=== PATIENT | female | born 1970 | race Caucasian/White ===

== ENCOUNTER → 2019-04-23 08:55 | Outpatient (BNVA) | payer MEDICARE, SELFPAY | PROVIDERS: Family Provider Nurse Practitioner Family; PCP Nurse Practitioner Family; Visit Provider Anesthesiology | DX: M51.16 Intervertebral disc disorders with radiculopathy, lumbar region (principal); F17.290 Nicotine dependence, other tobacco product, uncomplicated; Z71.6 Tobacco abuse counseling; Z79.891 Long term (current) use of opiate analgesic | CPT/HCPCS: 99214 ==

== ENCOUNTER → 2019-08-13 08:05 | Outpatient (BNVA) | payer MEDICARE, SELFPAY | PROVIDERS: Family Provider Nurse Practitioner Family; PCP Nurse Practitioner Family; Visit Provider Anesthesiology | DX: M51.16 Intervertebral disc disorders with radiculopathy, lumbar region (principal); F17.290 Nicotine dependence, other tobacco product, uncomplicated; Z79.891 Long term (current) use of opiate analgesic | CPT/HCPCS: 99213; 99214 ==

== ENCOUNTER → 2019-10-15 07:54 | Outpatient (BNVA) | payer MEDICARE, SELFPAY | PROVIDERS: Family Provider Nurse Practitioner Family; PCP Nurse Practitioner Family; Visit Provider Anesthesiology | DX: M51.16 Intervertebral disc disorders with radiculopathy, lumbar region (principal); M54.9 Dorsalgia, unspecified; F17.290 Nicotine dependence, other tobacco product, uncomplicated; Z79.891 Long term (current) use of opiate analgesic | CPT/HCPCS: 99213; 99214 ==

== ENCOUNTER → 2019-12-19 08:09 | Outpatient (BNVA) | payer MEDICARE, SELFPAY | PROVIDERS: Family Provider Nurse Practitioner Family; PCP Nurse Practitioner Family; Visit Provider Anesthesiology | DX: M51.16 Intervertebral disc disorders with radiculopathy, lumbar region (principal); M54.9 Dorsalgia, unspecified; Z79.891 Long term (current) use of opiate analgesic; F17.290 Nicotine dependence, other tobacco product, uncomplicated | CPT/HCPCS: 99213; 99214 ==

== ENCOUNTER → 2020-02-11 09:39 | Outpatient (BNVA) | payer MEDICARE, SELFPAY | PROVIDERS: Family Provider Nurse Practitioner Family; PCP Nurse Practitioner Family; Visit Provider Anesthesiology | DX: M51.16 Intervertebral disc disorders with radiculopathy, lumbar region (principal); M54.9 Dorsalgia, unspecified; F17.210 Nicotine dependence, cigarettes, uncomplicated; Z79.891 Long term (current) use of opiate analgesic | CPT/HCPCS: 99213; 99214 ==

== ENCOUNTER → 2020-04-22 09:23 | Outpatient (BNVA) | payer MEDICARE, SELFPAY | PROVIDERS: Family Provider Nurse Practitioner Family; PCP Nurse Practitioner Family; Visit Provider Nurse Practitioner | DX: M51.16 Intervertebral disc disorders with radiculopathy, lumbar region (principal); M54.9 Dorsalgia, unspecified; F17.290 Nicotine dependence, other tobacco product, uncomplicated; Z79.891 Long term (current) use of opiate analgesic | CPT/HCPCS: 99213 ==

== ENCOUNTER → 2020-06-18 07:54 | Outpatient (BNVA) | payer MEDICARE, SELFPAY | PROVIDERS: Family Provider Nurse Practitioner Family; PCP Nurse Practitioner Family; Visit Provider Anesthesiology | DX: M51.16 Intervertebral disc disorders with radiculopathy, lumbar region (principal); M54.9 Dorsalgia, unspecified; M25.551 Pain in right hip; M25.552 Pain in left hip; F17.290 Nicotine dependence, other tobacco product, uncomplicated; Z79.891 Long term (current) use of opiate analgesic | CPT/HCPCS: 99213 ==

== ENCOUNTER → 2020-08-18 08:44 | Outpatient (BNVA) | payer MEDICARE, SELFPAY | PROVIDERS: Family Provider Nurse Practitioner Family; PCP Nurse Practitioner Family; Visit Provider Nurse Practitioner | DX: M51.16 Intervertebral disc disorders with radiculopathy, lumbar region (principal); M54.9 Dorsalgia, unspecified; F17.290 Nicotine dependence, other tobacco product, uncomplicated; Z79.891 Long term (current) use of opiate analgesic | CPT/HCPCS: 99214 ==

== ENCOUNTER → 2020-09-08 08:07 | Outpatient (BNVA) | payer MEDICARE, SELFPAY | PROVIDERS: Family Provider Nurse Practitioner Family; PCP Nurse Practitioner Family; Visit Provider Nurse Practitioner | DX: M51.16 Intervertebral disc disorders with radiculopathy, lumbar region (principal); Z79.1 Long term (current) use of non-steroidal anti-inflammatories (NSAID); Z79.891 Long term (current) use of opiate analgesic | CPT/HCPCS: 99213; 99214 ==

== ENCOUNTER → 2020-11-12 08:47 | Outpatient (BNVA) | payer MEDICARE, SELFPAY | PROVIDERS: Family Provider Nurse Practitioner Family; PCP Nurse Practitioner Family; Visit Provider Anesthesiology | DX: G89.29 Other chronic pain (principal); M51.16 Intervertebral disc disorders with radiculopathy, lumbar region; Z79.891 Long term (current) use of opiate analgesic | CPT/HCPCS: 99213 ==

== ENCOUNTER → 2021-01-12 08:55 | Outpatient (BNVA) | payer MEDICARE, SELFPAY | PROVIDERS: Family Provider Nurse Practitioner Family; PCP Nurse Practitioner Family; Visit Provider Anesthesiology | DX: G89.29 Other chronic pain (principal); M51.16 Intervertebral disc disorders with radiculopathy, lumbar region; F17.290 Nicotine dependence, other tobacco product, uncomplicated; Z79.891 Long term (current) use of opiate analgesic | CPT/HCPCS: 99214 ==

== ENCOUNTER 2021-03-13 17:29 | Inpatient (IN) | payer MEDICARE, SELFPAY ==
[2021-03-13] VITALS (8 sets, daily range): BP systolic 115–129; BP diastolic 77–91; PULSE 67–90; RESP 15–30; TEMP 36.8; O2SAT 79–95; BMI 39.0
--- NOTE | 2021-03-13 17:57 | ECG_ITS ---
[facility] Test Date: 2021-03-13 Pat Name: Megan Villaseñor Department: Room: Gender: Female Unit Technician: : 1970 Requested By: Esau Stokes Order Number: [id number] Reading MD: RENEE MOREL Measurements Intervals [facility] Rate: 78 P: 25 WY: 183 QRS: 26 QRSD: 95 T: 35 QT: 377 QTc: 431 Interpretive Statements SINUS RHYTHM No previous ECG available for comparison Electronically Signed On 03-14-2021 20:54:27 SPINNERET PERSON by RENEE MOREL [email or web address]
--- NOTE | 2021-03-13 17:57 | XRR_ITS ---
PROCEDURE INFORMATION: Exam: XR Chest Exam date and time: 03/13/2021 5:57 PM Age: 50 years old Clinical indication: Dyspnea; Additional info: SOB TECHNIQUE: Imaging protocol: XR of the chest. Views: 1 view. COMPARISON: No relevant prior studies available. FINDINGS: Lungs: Left lower lobe parenchymal densities are noted consistent with pneumonia. Atelectasis is seen in the right lower lobe. The upper lung pastor are clear Pleural spaces: Unremarkable. No pleural effusion. No pneumothorax. Heart/Mediastinum: Unremarkable. No cardiomegaly. Bones/joints: Unremarkable. XR/XR chest 1V portable [id number] IMPRESSION: 1. Left lower lobe pneumonia. 2. Right lower lobe atelectasis
--- NOTE | 2021-03-13 18:28 | W.ED.COVID ---
HPI - COVID General: Chief Complaint: COVID symptoms Stated Complaint: FEVER, COUGH, MUSCLE ACHES, N/V/D Time Seen by Provider: 03/13/21 17:49 Source: patient Mode of arrival: ambulatory Limitations: no limitations Triage information: Has fever, cough or shortness of breath. Exposure to COVID + person last 14 days History of Present Illness: HPI Narrative: 50-year-old female states that over the last 7 days she been having cough congestion fever some weakness as well. She states she saw her PCP 1 week ago did not have a COVID test but has been on antibiotics for possible pneumonia. States that she is worsened and got much more short of breath today patient's pulse ox was in the 70s on room air out in the waiting room. She does not wear oxygen at baseline at home. Denies any vomiting or diarrhea. COVID 19 common symptoms: positive fever(s), chills, non-productive cough, dyspnea, body aches and nausea; negative headache(s) or throat pain COVID 19 other sytmptoms: negative chest pain COVID Results: SARS-CoV-2 Antigen (Rapid) Negative (Negative) 03/13/21 19:10 03/13/21 SARS-CoV-2 (PCR) Detected (NOT DETECT) A 03/13/21 19:00 03/13/21 Coronavirus Type 229E (PCR) Not detected (NOT DETECT) 03/13/21 19:00 03/13/21 Review of Systems Const: Reports: fever(s), chills and body aches Eyes: Denies: blurry vision or eye discomfort ENMT: Denies: throat pain or dental pain Card: Denies: chest pain Resp: Reports: dyspnea and non-productive cough GI: Reports: nausea : Denies: dysuria Musc: Denies: neck pain or back pain Skin/Breast: Denies: rash Neuro: Denies: headache(s) Psych: Denies: depression Darrian/Lymph: Denies: easy bruising All/Imm: Denies: urticaria PFSH ED PFSH: Medical History Chronic low back pain Encounter for long-term use of opiate analgesic group home (current) use of non-steroidal anti-inflammatories (nsaid) Lumbar disc disease with radiculopathy Opioid contract exists Surgical History H/O arthroscopic knee surgery History of hysterectomy Family History Other Arthritis CAD (coronary artery disease) Hypertension Psychiatric illness Seizure Social History Alcohol intake: never History of recent travel: No Physical Exam Const: COMMON NORMALS: no acute distress, patient oriented x3 and healthy appearing HENMT: COMMON NORMALS: normocephalic and atraumatic HEAD & SCALP: normocephalic and atraumatic Eye: COMMON NORMALS: Equal, round and reactive pupils present and EOMs intact bilaterally PUPIL: Yes Equal, round and reactive pupils present Neck/C-Spine: COMMON NORMALS: full ROM and supple Chest: COMMONS NORMALS: normal inspection of the chest and normal palpation of entire chest wall Resp: COMMON NORMALS: normal respiratory effort, No retractions, No use of accessory muscles and clear to auscultation bilaterally AUSCULTATION: clear to auscultation bilaterally Cardio: COMMON NORMALS: regular rate, regular rhythm and No murmurs present (Cardio) RATE: regular rate RHYTHM: regular rhythm GI: COMMON NORMALS: Normal to inspection, nondistended, normoactive bowel sounds present, Soft to palpation, non-tender and no masses PALPATION: Yes Soft to palpation Extremity: COMMON NORMALS: normal to inspection and full ROM Neuro: COMMON NORMALS: patient oriented x3, moves all extremities and no focal motor deficits Psych: COMMON NORMALS: mental status grossly normal, Normal thought process present and cooperative THOUGHT PROCESS: Normal thought process present Skin: COMMON NORMALS: no rashes or lesions noted and no wounds GENERAL SKIN EXAM: no rashes or lesions noted Course Vital Signs: Vital signs: Vital Signs Temperature 98.2 F 03/13/21 17:42 Pulse Rate 71 03/13/21 21:00 Respiratory Rate 23 H 03/13/21 21:00 Blood Pressure 129/91 03/13/21 19:00 Pulse Oximetry 93 03/13/21 21:00 MDM - COVID MDM Narrative: Medical decision making narrative: Patient presents here with pneumonia COVID PCR did come back positive patient is requiring 8 L of oxygen here spoke to hospitalist and will admit at this time. Lab Data: Labs: Lab Results 03/13/21 03/13/21 03/13/21 18:28 18:45 18:45 WBC 4.1 10^3/uL 10^3/ uL (4.0-10.0) RBC 4.84 10^6/uL 10^6 /uL (4.1-5.3) Hgb 14.5 g/dL g/dL (11.5-15.3) Hct 43.9 % % (37.0-47.0) MCV 90.7 fl fl (81-99) MCH 30.0 pg pg (28.0-34.0) MCHC 33.0 g/dL g/dL (30.0-36.0) RDW 11.9 % L % (12.1-15.1) Plt Count 230 10^3/cmm 10^3 /cmm (130-400) MPV 9.9 fL fL (7.4-10.4) Neut % (Auto) 49.3 % % Lymph % (Auto) 31.3 % % [place] % (Auto) 10.1 % % Eos % (Auto) 0.2 % % Baso % (Auto) 1.5 % % Neut # (Auto) 2.00 10^3/uL 10^3 /uL (1.8-7.7) Lymph # (Auto) 1.3 10^3/uL 10^3/ uL (0.8-4.8) [place] # (Auto) 0.4 10^3/uL 10^3/ uL (0.2-0.9) Eos # (Auto) 0.0 10^3/uL 10^3/ uL (0.0-0.8) Baso # (Auto) 0.1 10^3/uL 10^3/ uL (0.0-0.1) Nucleated RBC % (a uto) 0 % % Nucleated RBCs # 0.0 /100WBC /100W BC D-Dimer 1.35 ug/mIFEU H u g/mIFEU (0-0.59) Specimen Type Arterial Sample Site Radial, right ABG pH 7.47 H (7.35-7.45) ABG pCO2 39.4 mmHg mmHg (35-45) ABG pO2 76.3 mmHg L mmHg (80.0-100.0) ABG HCO3 28.8 mmol/L H mmo l/L (22-26) ABG Base Excess 4.8 mmol/L H mmol /L (-2.0-2.0) Truman Test Pos Hematocrit 44.7 % % (37-47) O2 Delivery Device Nrb O2 Liters/Min 15.0 % % FiO2 100.0 % % Carbonation Equipment Tender ID Ed Sodium Potassium Chloride Carbon Dioxide Anion Gap BUN Creatinine GFR Calculation Glucose Calculated Osmolal ity Lactic Acid Calcium Total Bilirubin AST ALT Alkaline Phosphata se C-Reactive Protein NT-Pro-B Natriuret Pep Total Protein Albumin Globulin Coronavirus 229E ( PCR) SARS-CoV-2 (PCR) SARS-CoV-2 Ag (Rap id) 03/13/21 03/13/21 03/13/21 18:45 18:45 19:00 WBC RBC Hgb Hct MCV MCH MCHC RDW Plt Count MPV Neut % (Auto) Lymph % (Auto) [place] % (Auto) Eos % (Auto) Baso % (Auto) Neut # (Auto) Lymph # (Auto) [place] # (Auto) Eos # (Auto) Baso # (Auto) Nucleated RBC % (a uto) Nucleated RBCs # D-Dimer Specimen Type Sample Site ABG pH ABG pCO2 ABG pO2 ABG HCO3 ABG Base Excess Truman Test Hematocrit O2 Delivery Device O2 Liters/Min FiO2 Carbonation Equipment Tender ID Sodium 132 mmol/L L mmol /L (136-145) Potassium 4.6 mmol/L mmol/L (3.5-5.1) Chloride 92 mmol/L L mmol/ L (98-107) Carbon Dioxide 25 mmol/L mmol/L (22-29) Anion Gap 19.6 H (5-19) BUN 12 mg/dL mg/dL (6-20) Creatinine 0.7 mg/dL mg/dL (0.5-0.9) GFR Calculation 88.9 mL/min L mL/ min (90-130) Glucose 105 mg/dL mg/dL (65-115) Calculated Osmolal ity 274 mOsm/kg L mOs m/kg (285-295) Lactic Acid 1.0 mmol/L mmol/L (0.5-2.2) Calcium 8.5 mg/dL mg/dL (8.5-10.5) Total Bilirubin 0.5 mg/dL mg/dL (0.15-1.2) AST 68 U/L H U/L (0-32) ALT 51 U/L H U/L (0-33) Alkaline Phosphata se 100 IU/L IU/L (35-105) C-Reactive Protein 30.4 mg/L H mg/L (0.0-4.9) NT-Pro-B Natriuret Pep 99 pg/mL pg/mL (0-125) Total Protein 6.8 g/dL g/dL (6.6-8.7) Albumin 3.9 g/dL g/dL (3.5-5.2) Globulin 2.9 g/dL g/dL (1.3-4.6) Coronavirus 229E ( PCR) Not detected (NOT DETECT) SARS-CoV-2 (PCR) Detected A (NOT DETECT) SARS-CoV-2 Ag (Rap id) 03/13/21 19:10 WBC RBC Hgb Hct MCV MCH MCHC RDW Plt Count MPV Neut % (Auto) Lymph % (Auto) [place] % (Auto) Eos % (Auto) Baso % (Auto) Neut # (Auto) Lymph # (Auto) [place] # (Auto) Eos # (Auto) Baso # (Auto) Nucleated RBC % (a uto) Nucleated RBCs # D-Dimer Specimen Type Sample Site ABG pH ABG pCO2 ABG pO2 ABG HCO3 ABG Base Excess Truman Test Hematocrit O2 Delivery Device O2 Liters/Min FiO2 Carbonation Equipment Tender ID Sodium Potassium Chloride Carbon Dioxide Anion Gap BUN Creatinine GFR Calculation Glucose Calculated Osmolal ity Lactic Acid Calcium Total Bilirubin AST ALT Alkaline Phosphata se C-Reactive Protein NT-Pro-B Natriuret Pep Total Protein Albumin Globulin Coronavirus 229E ( PCR) SARS-CoV-2 (PCR) SARS-CoV-2 Ag (Rap id) Negative (Negative) Imaging Data: CT Chest: Attestation: I personally reviewed and interpreted this imaging study as follows: Radiologist's impression: 1. Geographic ground-glass opacities with consolidation and some interstitial opacities consistent with moderate to severe COVID-19 pneumonia versus other pneumonia. 2. Mild mediastinal and bilateral hilar adenopathy which may be reactive. 3. Mild cardiomegaly. 4. No pulmonary embolus or aortic dissection. 5. 13.2 cm mild splenomegaly. 6. Multiple gallstones within the gallbladder. EKG Data: EKG 1: Attestation: I personally reviewed and interpreted this EKG as follows: EKG interpretation date: 03/13/21 EKG interpretation time: 18:43 Interpretation: nsr hr [address] or t wave abnormalities qrs 95 qtc 411 COVID Results: SARS-CoV-2 Antigen (Rapid) Negative (Negative) 03/13/21 19:10 03/13/21 SARS-CoV-2 (PCR) Detected (NOT DETECT) A 03/13/21 19:00 03/13/21 Coronavirus Type 229E (PCR) Not detected (NOT DETECT) 03/13/21 19:00 03/13/21 Discharge Plan Discharge Patient Disposition: Admitted As Inpatient Clinical Impression: Respiratory failure with hypoxia, Pneumonia, COVID-19 Condition: Stable Coding Level of Care Code 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
[2021-03-13 18:38] LABS: ABG PCO2 39.4 mmHg (35-45); ABG PH Result 7.47 (7.35-7.45); Arterial Blood Gas Hematocrit 44.7 % (37-47); Base Excess ABG 4.8 mmol/L (-2.0-2.0); Blood Gas Allen Test Pos; Blood Gas Operator Identificat ED; Blood Gas Sample Site Radial, right; Blood Gas Sample Type Arterial; HCO3 ABG 28.8 mmol/L (22-26); Oxygen Device NRB; PO2 ABG 76.3 mmHg (80.0-100.0)
[2021-03-13 18:54] LABS: Basophils # 0.1 10^3/uL (0.0-0.1); Basophils % 1.5 %; Eosinophils % 0.2 %; Hematocrit 43.9 % (37.0-47.0); Hemoglobin 14.5 g/dL (11.5-15.3); Lymphocytes # 1.3 10^3/uL (0.8-4.8); Lymphocytes % 31.3 %; Mean Corpuscular Volume 90.7 fl (81-99); Mean Platelet Volume 9.9 fL (7.4-10.4); Monocytes # 0.4 10^3/uL (0.2-0.9); Monocytes % 10.1 %; Neutrophils % 49.3 %; Nucleated Red Blood Cells % 0 %; Platelet Count 230 10^3/cmm (130-400); Red Blood Count 4.84 10^6/uL (4.1-5.3); Red Cell Distribution Width 11.9 % (12.1-15.1); White Blood Count 4.1 10^3/uL (4.0-10.0)
--- NOTE | 2021-03-13 18:55 | PC.NURSE ---
Patient placed on continuous cardiac, O2 and BP monitor at bedside. Pt on 10L O2 and sating at 89%, RT to bring high flow over to patient room.
[2021-03-13] MEDS: dexamethasone 4 mg/mL INJ 6 MG IVP (18:56)
[2021-03-13 19:08] LABS: D Dimer 1.35 ug/mIFEU (0-0.59)
[2021-03-13 19:15] LABS: Slide Review Slide Review Perform
[2021-03-13 19:22] LABS: Alanine Aminotransferase 51 U/L (0-33); Albumin Level 3.9 g/dL (3.5-5.2); Alkaline Phosphatase 100 IU/L (35-105); Blood Urea Nitrogen 12 mg/dL (6-20); C Reactive Protein 30.4 mg/L (0.0-4.9); Calcium 8.5 mg/dL (8.5-10.5); Carbon Dioxide 25 mmol/L (22-29); Chloride 92 mmol/L (98-107); Globulin 2.9 g/dL (1.3-4.6); Glomerular Filtration Rate 88.9 mL/min (90-130); Glucose 105 mg/dL (65-115); NT Pro B Type Natriuretic Pept 99 pg/mL (0-125); Osmolality Calculated 274 mOsm/kg (285-295); Sodium 132 mmol/L (136-145); Total Bilirubin 0.5 mg/dL (0.15-1.2); Total Protein 6.8 g/dL (6.6-8.7)
[2021-03-13 19:34] LABS: SARS Covid-2 Antigen Negative (Negative)
[2021-03-13 19:34] LABS: Anion Gap 19.6 (5-19); Aspartate Amino Transferase 68 U/L (0-32); Potassium 4.6 mmol/L (3.5-5.1)
--- NOTE | 2021-03-13 19:36 | CTR_ITS ---
PROCEDURE INFORMATION: Exam: CTA Chest With Contrast Exam date and time: 03/13/2021 7:36 PM Age: 50 years old Clinical indication: Shortness of breath; Patient HX: SOB, cough, fever, weakness TECHNIQUE: Imaging protocol: Computed tomographic angiography of the chest with contrast. 3D rendering (Not supervised by radiologist): MIP and/or 3D reconstructed images were created by the technologist. Radiation optimization: All CT scans at this facility use at least one of these dose optimization techniques: automated exposure control; mA and/or kV adjustment per patient size (includes targeted exams where dose is matched to clinical indication); or iterative reconstruction. Contrast material: OMNI 350; Contrast volume: 65 ml; Contrast route: INTRAVENOUS (IV); COMPARISON: CR (CHEST, ) 03/13/2021 6:14 PM RADIATION DOSE METRICS: Total DLP (mGy-cm): 518.37 FINDINGS: Pulmonary arteries: No pulmonary embolus or aortic dissection. Aorta: See Pulmonary arteries finding. Lungs: Geographic ground-glass opacities with consolidation and some interstitial opacities consistent with moderate to severe COVID-19 pneumonia versus other pneumonia. Pleural spaces: Unremarkable. No pneumothorax. No pleural effusion. Heart: Mild cardiomegaly. Lymph nodes: Mild mediastinal and bilateral hilar adenopathy which may be reactive. Gallbladder and bile ducts: Multiple gallstones within the gallbladder. Spleen: 13.2 cm mild splenomegaly. One or more accessory splenules. Bones/joints: Unremarkable. No acute fracture. Soft tissues: Unremarkable. CT/CT angio chest PE protcl [id number] IMPRESSION: 1. Geographic ground-glass opacities with consolidation and some interstitial opacities consistent with moderate to severe COVID-19 pneumonia versus other pneumonia. 2. Mild mediastinal and bilateral hilar adenopathy which may be reactive. 3. Mild cardiomegaly. 4. No pulmonary embolus or aortic dissection. 5. 13.2 cm mild splenomegaly. 6. Multiple gallstones within the gallbladder.
[2021-03-13] MEDS: cefTRIAXone 1,000 MG in sodium chloride 0.9% (plus) 50 ML 100 MG IV (20:19)
[2021-03-13] MEDS: azithromycin 500 MG in sodium chloride 0.9% 250 ML 250 MG IV (20:21)
[2021-03-13] MEDS: iohexol 350 mg/mL 100 mL Btl IV (20:43)
[2021-03-13 21:38] LABS: Adenovirus Not Detected (NOT DETECT); Chlamydia Pneumoniae Not Detected (NOT DETECT); Coronavirus 229E,HKU1,NL63,OC4 Not Detected (NOT DETECT); Human Metapneumovirus Not Detected (NOT DETECT); Human Rhinovirus/Enterovirus Not Detected (NOT DETECT); Influenza A Not Detected (NOT DETECT); Influenza A H1 Not Detected (NOT DETECT); Influenza A H1-2009 Not Detected (NOT DETECT); Influenza A H3 Not Detected (NOT DETECT); Influenza B Not Detected (NOT DETECT); Mycoplasma Pneumoniae Not Detected (NOT DETECT); Parainfluenza Virus Type 1 Not Detected (NOT DETECT); Parainfluenza Virus Type 2 Not Detected (NOT DETECT); Parainfluenza Virus Type 3 Not Detected (NOT DETECT); Parainfluenza Virus Type 4 Not Detected (NOT DETECT); Respiratory Syncytial Virus A Not Detected (NOT DETECT); Respiratory Syncytial Virus B Not Detected (NOT DETECT); SARS-COV-2 Detected (NOT DETECT)
[2021-03-14] VITALS (15 sets, daily range): BP systolic 107–128; BP diastolic 64–83; PULSE 63–90; RESP 16–20; TEMP 36.6–36.9; O2SAT 89–95; BMI 39.3
--- NOTE | 2021-03-14 00:06 | PM.HP ---
Providers/Chief Complaint Admitting Physician: Ervin Gray Primary Care Provider: POONAM Boyd Chief Complaint: FEVER, COUGH, MUSCLE ACHES, N/V/D History of Present Illness 50 year old with past medical history of chronic back pain on narcotics and daily vaping who presented to ER with respiratory distress. This was associated with subjective fever, non-productive cough, nausea, generalized weakness and poor appetite. Vitals on arrival showed BP 116/79, HR 90, RR 26, Temp 79% with improvement to 93% on 10L/min via NC. Lab work up on arrival showed aWBC of 4.1, hemoglobin 14.5, hematocrit of 43.9 and a platelet count of 230. D-dimer 1.35. Sodium 132, potassium 4.6, chloride 92, bicarb 25, BUN 12 with a creatinine of 0.7. AST of 68, ALT of 51. ProBNP of 99. COVID-19 PCR was detected. Imaging : Chest x-ray LLL parenchymal densities consistent with pneumonia RLL atelectasis CTA Chest: No evidence of pulmonary embolism Bilateral ground glass opacities with consolidation and interstitial opacities Mediastinal and bilateral hilar adenopathy - reactive Mild Cardiomegaly and splenomegaly ER Course Paient was noted to be profoundly hypoxic with respiratory distress. Placed on supplemental oxygen. Started on decadron 6 mg IV daily and empirically on ceftriaxone 1g IV daily plus azithromycin 500mg IV daily. Patient was on 6L via NC at the time of my eval. Review of Systems General: Reports: 10 or more systems reviewed and unremarkable except in HPI and below Medications/Allergies Home Medications Medication Instructions Recorded Confirmed Last Taken Type CBD OIL PO 04/23/19 03/04/21 Unknown History albuterol sulfate 90 mcg/actuation 1 inh INHALATION Q4H PRN 04/23/19 03/04/21 Unknown History breath activated powder inhaler,sensor uncnwqh-iwypegiawvdgi-nfwxykou 250 1 tab PO Q6H PRN 04/23/19 03/04/21 Unknown History mg-250 mg-65 mg tablet calcium carbonate 600 mg calcium 600 mg PO BID 04/23/19 03/04/21 Unknown History (1,500 mg) tablet cholecalciferol (vitamin D3) 1,250 1,250 mcg PO DAILY 04/23/19 03/04/21 Unknown History mcg (50,000 unit) capsule hyalur ac-chond sul-colg II-AA 40 cap PO DIRECTED cap 08/18/20 03/04/21 Unknown History mg-80 mg-400 mg capsule baclofen 20 mg tablet 20 mg PO TID PRN 30 Days #90 tab 01/12/21 03/04/21 Unknown Rx hydrocodone 10 mg-acetaminophen 1 tab PO QID 30 Days #120 tab 01/12/21 03/04/21 Unknown Rx 325 mg tablet hydrocodone 10 mg-acetaminophen 1 tab PO QID PRN 30 Days #120 tab 01/12/21 03/04/21 Unknown Rx 325 mg tablet hydrocodone 10 mg-acetaminophen 1 tab PO QID PRN 30 Days #120 tab 01/12/21 03/04/21 Unknown Rx 325 mg tablet hydrocodone bitartrate 30 mg 30 mg PO DAILY 30 Days #30 tab 01/12/21 03/04/21 Unknown Rx tablet,crush resist,extended rel. 24hr hydrocodone bitartrate 30 mg 30 mg PO DAILY 30 Days #30 tab 01/12/21 03/04/21 Unknown Rx tablet,crush resist,extended rel. 24hr hydrocodone bitartrate 30 mg 30 mg PO DAILY 30 Days #30 tab 01/12/21 03/04/21 Unknown Rx tablet,crush resist,extended rel. 24hr loratadine 10 mg tablet 10 mg PO DAILY #30 tab 02/16/21 03/04/21 Unknown Rx cephalexin 500 mg capsule 500 mg PO TID 7 Days #21 cap 03/04/21 03/04/21 Unknown Rx Allergies Allergy/AdvReac Type Severity Reaction Status Date / Time butorphanol [From Stadol] AdvReac Unknown ANGER Verified 03/04/21 14:20 gabapentin AdvReac Unknown NAUSEA/VOMI Verified 03/04/21 14:20 TING morphine AdvReac Unknown VOMITING Verified 03/04/21 14:20 oxycodone [From OxyContin] AdvReac Unknown N/V Verified 03/04/21 14:20 sulfamethoxazole AdvReac Unknown YEAST Verified 03/04/21 14:20 [From Bactrim] INFECTION trimethoprim [From Bactrim] AdvReac Unknown YEAST Verified 03/04/21 14:20 INFECTION zonisamide [From Zonegran] AdvReac Unknown N/V Verified 02/01/21 14:02 PFSH Acute PFSH: Medical History Chronic low back pain Encounter for long-term use of opiate analgesic detention (current) use of non-steroidal anti-inflammatories (nsaid) Lumbar disc disease with radiculopathy Opioid contract exists Surgical History H/O arthroscopic knee surgery History of hysterectomy Family History Other Arthritis CAD (coronary artery disease) Hypertension Psychiatric illness Seizure Social History Alcohol intake: never History of recent travel: No Vitals/I&O/Wt Last Vital Signs Temp 98.2 F 03/13/21 17:42 Pulse 67 03/13/21 22:52 Resp 30 H 03/13/21 22:52 BP 115/77 03/13/21 22:52 Pulse Ox 95 03/13/21 22:52 03/13/21 03/13/21 03/14/21 14:59 22:59 06:59 Intake Total 300 / 300 Balance 300 / 300 Weight last 48 hrs Weight 103.238 kg Physical Exam Narrative: EXAM NARRATIVE: General: Alert, Awake, oriented x3 HEENT; EOMI CVS RRR Chest; Nonlabored respiration Abd; Soft,nT,ND Ext no edema Data : 03/13/21 18:45 03/13/21 18:45 Micro: Microbiology 03/13/21 18:45 Blood Culture - Preliminary Blood SPECIMEN COLLECTED 03/13/21 18:45 Blood Culture - Preliminary Blood SPECIMEN COLLECTED A&P Assessment and plan (1) Respiratory failure with hypoxia: Status: Acute (2) Pneumonia: Status: Acute (3) COVID-19: Status: Acute Additional A&P Information COVID-19 pneumonia Decadron 6 mg IV daily x 10 days D/w risk/benefit of remdesivir - agreed to initiate Remdesivir 200 mg IV x1 followed by 100 mg IV daily x 4 days COVID-19 labs in am Droplet precautions Possible superimposed bacteria infection Rocephin/Azithromycin as ordered Follow up on culture Wean supplemental o2 as needed Tylenol/Zofran PRN Elevated LFTs Likely due to above Repeat LFT in am Consider RUQ US if worsening DVT ppx Lovenox 40 mg SQ daily Attestations Medical Necessity Statement*: Will require > 2 midnight stay in hospital for eval and treatment Time Spent in Patient Care: Greater than 35 minutes (>than 50% of time spent in counselling and/or direct pt care on unit). 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
[2021-03-14] MEDS: ipratropium-albuterol 3 mL Neb INHALATION ×4 (02:37→20:36)
[2021-03-14] MEDS: remdesivir 200 MG in sodium chloride 0.9% (100 ml) 60 ML 100 MG IV (04:43)
[2021-03-14 06:56] LABS: Ferritin 1148 ng/mL (15-150)
[2021-03-14] MEDS: enoxaparin 40 mg/0.4 mL Syringe SUBCUT (09:33)
--- NOTE | 2021-03-14 19:15 | PM.PN ---
Subjective Subjective: Interval history: Having fatigue, body aches. Poor appetite. No chest pain or pressure. Vitals/I&O/Wt Last Vital Signs Temp 98.2 F 03/14/21 15:42 Pulse 90 03/14/21 16:51 Resp 17 03/14/21 16:40 BP 107/67 03/14/21 15:42 Pulse Ox 90 03/14/21 16:40 03/14/21 03/14/21 03/14/21 06:59 14:59 22:59 Intake Total 360 / 360 240 / 240 Balance 360 / 360 240 / 240 Weight last 48 hrs Weight 103.873 kg Weight 103.873 kg Weight 103.238 kg Physical Exam Const: COMMON NORMALS: no acute distress and patient oriented x3 GENERAL APPEARANCE: ill appearing NUTRITIONAL APPEARANCE: obese HENMT: COMMON NORMALS: oropharynx normal Neck/C-Spine: COMMON NORMALS: no JVD Resp: COMMON NORMALS: normal respiratory effort and clear to auscultation bilaterally AUSCULTATION: clear to auscultation bilaterally Cardio: COMMON NORMALS: no JVD, regular rhythm, S1 normal heart sound present, S2 normal heart sound present and No murmurs present (Cardio) RHYTHM: regular rhythm HEART SOUNDS: S1 normal heart sound present and S2 normal heart sound present GI: COMMON NORMALS: Normal to inspection, nondistended, normoactive bowel sounds present, Soft to palpation and non-tender PALPATION: Yes Soft to palpation Extremity: COMMON NORMALS: no joint enlargement and no pedal edema Neuro: COMMON NORMALS: patient oriented x3 and moves all extremities Skin: COMMON NORMALS: no rashes or lesions noted GENERAL SKIN EXAM: no rashes or lesions noted Data : 03/13/21 18:45 03/13/21 18:45 Micro: Microbiology 03/13/21 18:45 Blood Culture - Preliminary Blood NEGATIVE TO DATE 03/13/21 18:45 Blood Culture - Preliminary Blood NEGATIVE TO DATE A&P Assessment and plan (1) Respiratory failure with hypoxia: Worsened oxygenation, requiring 8 L by nasal cannula. Continue oxygen support. Continue Decadron, remdesivir. Continue empiric antibiotic coverage at this time. Continue prophylactic Lovenox. Breathing treatments, supportive care with antitussives. Status: Acute (2) Pneumonia: Status: Acute (3) COVID-19: Status: Acute Additional A&P Information Elevated LFTs: Due to COVID-19, follow-up levels Attestations Medical Necessity Statement*: Continue admission for assessment management of hypoxic respiratory failure secondary to severe COVID-19. 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
[2021-03-14] MEDS: cefTRIAXone 1,000 MG in sodium chloride 0.9% (plus) 50 ML 100 MG IV (19:19)
[2021-03-14] MEDS: HYDROcodone-acetaminophen 10-325 mg Tablet 1 TAB PO (21:06)
[2021-03-14] MEDS: azithromycin 500 MG in sodium chloride 0.9% 250 ML 250 MG IV (21:07)
[2021-03-14] MEDS: dexamethasone 10 mg/mL INJ 6 MG IVP (21:07)
[2021-03-15] VITALS (12 sets, daily range): BP systolic 109–132; BP diastolic 64–74; PULSE 62–89; RESP 18–20; TEMP 36.6–37.1; O2SAT 84–98
[2021-03-15] MEDS: ipratropium-albuterol 3 mL Neb INHALATION ×2 (02:51→09:05)
[2021-03-15] MEDS: remdesivir 100 MG in sodium chloride 0.9% (100 ml) 80 ML IV (05:55)
[2021-03-15] MEDS: HYDROcodone-acetaminophen 10-325 mg Tablet 1 TAB PO (06:03)
[2021-03-15 06:05] LABS: Hematocrit 40.3 % (37.0-47.0); Hemoglobin 13.1 g/dL (11.5-15.3); Lymphocytes # 0.9 10^3/uL (0.8-4.8); Lymphocytes % 24.1 %; Mean Corpuscular HGB Conc 32.5 g/dL (30.0-36.0); Mean Corpuscular Hemoglobin 29.6 pg (28.0-34.0); Mean Corpuscular Volume 91.2 fl (81-99); Mean Platelet Volume 9.5 fL (7.4-10.4); Monocytes # 0.3 10^3/uL (0.2-0.9); Monocytes % 6.5 %; Neutrophils % 60.3 %; Nucleated Red Blood Cells % 0 %; Platelet Count 332 10^3/cmm (130-400); Red Blood Count 4.42 10^6/uL (4.1-5.3); Red Cell Distribution Width 11.9 % (12.1-15.1); White Blood Count 3.8 10^3/uL (4.0-10.0)
[2021-03-15 06:11] LABS: D Dimer 0.66 ug/mIFEU (0-0.59)
[2021-03-15 06:14] LABS: Lactic Sepsis W/Reflex 1.4 mmol/L (0.5-2.2)
[2021-03-15 06:16] LABS: Alanine Aminotransferase 74 U/L (0-33); Albumin Level 3.8 g/dL (3.5-5.2); Alkaline Phosphatase 104 IU/L (35-105); Anion Gap 18.6 (5-19); Aspartate Amino Transferase 50 U/L (0-32); Blood Urea Nitrogen 14 mg/dL (6-20); Calcium 8.6 mg/dL (8.5-10.5); Carbon Dioxide 24 mmol/L (22-29); Chloride 97 mmol/L (98-107); Globulin 2.5 g/dL (1.3-4.6); Glomerular Filtration Rate 106.3 mL/min (90-130); Glucose 181 mg/dL (65-115); Magnesium 2.4 mg/dL (1.7-2.3); Osmolality Calculated 285 mOsm/kg (285-295); Potassium 4.6 mmol/L (3.5-5.1); Sodium 135 mmol/L (136-145); Total Bilirubin 0.3 mg/dL (0.15-1.2); Total Protein 6.3 g/dL (6.6-8.7)
[2021-03-15 06:29] LABS: Procalcitonin 0.07 ng/mL (0-0.5)
[2021-03-15 06:57] LABS: Slide Review Slide Review Perform
[2021-03-15] MEDS: enoxaparin 40 mg/0.4 mL Syringe SUBCUT (09:30)
--- NOTE | 2021-03-15 17:59 | PM.DCS ---
Discharge Providers Date of Admission: 03/13/21 21:22 Date of Discharge: March 15, 2021 Attending Provider at Admission: Ervin Gray Attending Provider at Discharge: Darryl Garcia Primary Care Provider: POONAM Boyd Diagnoses at Discharge Discharge Diagnosis (1) Respiratory failure with hypoxia: Status: Acute (2) Pneumonia: Status: Acute (3) COVID-19: Status: Acute Reason for Visit Reason for Visit: FEVER, COUGH, MUSCLE ACHES, N/V/D Hospital Course Hospital Course Pleasant 50-year-old lady with history of chronic low back pain, was admitted and treated due to severe COVID-19 after presenting with respiratory distress, subjective fever, cough, nausea, weakness, poor appetite. Was treated with Decadron, remdesivir while in the hospital. Empirically also received antibiotic coverage with Rocephin and azithromycin for possible superimposed community-acquired pneumonia. Required oxygen support, up to as high as 12 L by nasal cannula. She has been gradually improving, and has been down to 4 L by nasal cannula. She is feeling much better. She is tolerating oral intake. She feels much more comfortable returning home. Home oxygen evaluation is obtained prior to discharge. She will complete 5 days of Decadron and empiric antibiotic course. She knows to seek medical attention in case of worsening or concerning symptoms. Physical Exam Const: COMMON NORMALS: no acute distress and patient oriented x3 OTHER: Intermittent cough. HENMT: COMMON NORMALS: oropharynx normal Neck/C-Spine: COMMON NORMALS: no JVD Resp: COMMON NORMALS: normal respiratory effort and clear to auscultation bilaterally AUSCULTATION: clear to auscultation bilaterally Cardio: COMMON NORMALS: no JVD, regular rhythm, S1 normal heart sound present, S2 normal heart sound present and No murmurs present (Cardio) RHYTHM: regular rhythm HEART SOUNDS: S1 normal heart sound present and S2 normal heart sound present GI: COMMON NORMALS: Normal to inspection, nondistended, normoactive bowel sounds present, Soft to palpation and non-tender PALPATION: Yes Soft to palpation Extremity: COMMON NORMALS: no joint enlargement and no pedal edema Neuro: COMMON NORMALS: patient oriented x3 and moves all extremities Skin: COMMON NORMALS: no rashes or lesions noted GENERAL SKIN EXAM: no rashes or lesions noted Discharge Data Data Completed and Pending: Completed Studies During Hospitalization Category Date Time Status CT angio chest PE protcl [id number] Urge nt Cat Scan 03/13/21 19:36 Completed XR chest 1V kaveh ble [id number] Stat Exams 03/13/21 17:57 Completed Pending at discharge Category Date Time Status Blood Culture Sta t Lab 03/13/21 18:45 Results Labs from last 24 hours 03/15/21 03/15/21 03/15/21 05:30 05:30 05:30 WBC RBC Hgb Hct MCV MCH MCHC RDW Plt Count MPV Neut % (Auto) Lymph % (Auto) [place] % (Auto) Eos % (Auto) Baso % (Auto) Neut # (Auto) Lymph # (Auto) [place] # (Auto) Eos # (Auto) Baso # (Auto) Nucleated RBC % (a uto) Nucleated RBCs # D-Dimer 0.66 H Sodium Potassium Chloride Carbon Dioxide Anion Gap BUN Creatinine GFR Calculation Glucose Calculated Osmolal ity Lactic Acid 1.4 Calcium Magnesium Total Bilirubin AST ALT Alkaline Phosphata se Total Protein Albumin Globulin Procalcitonin 0.07 03/15/21 03/15/21 05:30 05:30 WBC 3.8 L RBC 4.42 Hgb 13.1 Hct 40.3 MCV 91.2 MCH 29.6 MCHC 32.5 RDW 11.9 L Plt Count 332 MPV 9.5 Neut % (Auto) 60.3 Lymph % (Auto) 24.1 [place] % (Auto) 6.5 Eos % (Auto) 0.0 Baso % (Auto) 1.0 Neut # (Auto) 2.30 Lymph # (Auto) 0.9 [place] # (Auto) 0.3 Eos # (Auto) 0.0 Baso # (Auto) 0.0 Nucleated RBC % (a uto) 0 Nucleated RBCs # 0.0 D-Dimer Sodium 135 L Potassium 4.6 Chloride 97 L Carbon Dioxide 24 Anion Gap 18.6 BUN 14 Creatinine 0.6 GFR Calculation 106.3 Glucose 181 H Calculated Osmolal ity 285 Lactic Acid Calcium 8.6 Magnesium 2.4 H Total Bilirubin 0.3 AST 50 H ALT 74 H Alkaline Phosphata se 104 Total Protein 6.3 L Albumin 3.8 Globulin 2.5 Procalcitonin Vitals: Last Vital Signs Temp 97.8 F 03/15/21 11:31 Pulse 84 03/15/21 16:00 Resp 18 03/15/21 16:00 BP 123/74 03/15/21 16:00 Pulse Ox 89 L 03/15/21 16:00 Discharge Plan Discharge Patient Disposition: Home Condition: Stable Prescriptions: New dextromethorphan-guaifenesin 10-100 mg/5 mL Syrup 10 ml PO Q4H PRN (Reason: Cough) Qty: 237 RF: 0 benzonatate 100 mg Capsule 200 mg PO TID PRN (Reason: Cough) 7 Days Qty: 20 RF: 0 Decadron 6 mg tablet 6 mg PO QID 4 Days Qty: 16 RF: 0 azithromycin 500 mg tablet 500 mg PO DAILY 4 Days Qty: 4 RF: 0 cefdinir 300 mg capsule 300 mg PO BID 4 Days Qty: 8 RF: 0 Continued loratadine [Claritin] 10 mg tablet 10 mg PO DAILY Qty: 30 RF: 1 calcium carbonate [Calcium 600] 600 mg calcium (1,500 mg) tablet 600 mg PO BID RF: 0 CBD OIL drops 20 drp PO BID RF: 0 Excedrin Migraine 250-250-65 mg tablet 1 tab PO Q6H PRN (Reason: Migraine Headache) RF: 0 Hyaluronic Acid (chond-collgn) 40-80-400 mg capsule 1 cap PO DAILY RF: 0 hydrocodone bitartrate [Hysingla ER] 30 mg tablet,oral only,ext.rel.24 hr 30 mg PO DAILY 30 Days Qty: 30 RF: 0 hydrocodone-acetaminophen 10-325 mg tablet 1 tab PO QID PRN (Reason: pain) 30 Days Qty: 120 RF: 0 albuterol sulfate 90 mcg/actuation Hfa Aerosol Inhaler 1 puff INHALATION Q4H PRN (Reason: Shortness Of Breath) RF: 0 Vitamin D3 25 mcg (1,000 unit) Capsule 25 mcg PO DAILY RF: 0 baclofen 20 mg tablet 20 mg PO TID PRN (Reason: Muscle Spasms) RF: 0 Discontinued cephalexin 500 mg capsule 500 mg PO Q8H RF: 0 Discharge Orders: Discharge Order (Routine); Ordered 03/15/21 Ordered By: Darryl Garcia Other Ambulatory Orders: DME: Oxygen (Order) Location: None Selected Ordered By: Darryl Garcia Referrals: Collette Bear FNP [Primary Care Provider] - 03/29/21 10:00 am Discharge Diet: Cardiac and Low Cholesterol Discharge Activity: Increase activity as tolerated, Limit activity as instructed and Oxygen as instructed Patient Instructions: Benzonatate (By mouth), Azithromycin (By mouth), Dexamethasone (By mouth), Cefdinir (By mouth), Gallstones (GEN), Using Oxygen at Home (GEN), Hypoxia (GEN), Enlarged Spleen (GEN), COVID-19 (Coronavirus Disease 2019) (GEN), Opioid Safety Activity Restrictions/Additional Instructions: Continue oxygen support at home, target oxygen saturation of 90% or above. If your oxygen saturation is below 88%, increased oxygen flow rate by 1-2 L. This may happen especially with exertion when your body needs more oxygen. If your oxygen saturation at rest is increasing into high 90s, consider decreasing oxygen flow by 1-2 L, continue reassessment of oxygen saturations several times a day. If you experience difficulty maintaining oxygen saturation at 90% or above despite increasing oxygen and taking rest, or if you develop progressive worsening of shortness of breath, severe fatigue, chest pain or pressure, or other concerning symptoms, please seek medical attention. Seek COVID-19 vaccination after he recover to help prevent recurrence of severe COVID-19 illness. Please follow-up with your primary doctor regarding incidental findings seen on CT scan of the chest, including gallstones in the gallbladder, enlarged spleen at 13.2 cm, as well as lymph nodes in the mediastinum and lung anjel. Discharge Attestations Time Spent in Discharge Care*: greater than 30 min Quality Metrics Clinical Quality Measures During this hospital stay, did patient experience: None Coding Level of Care Code Acute [facility] LADI RANDHAWA note Diagnoses Respiratory failure with hypoxia J96.91 Pneumonia J18.9 COVID-19 U07.1
--- NOTE | 2021-03-15 19:30 | PC.NURSE ---
PT HAS DONE WELL FOR ME TODAY. PT HAS SATURATED WELL ON 4-5 L OXYGEN. PT WILL DISCHARGE TODAY. DISCHARGE PAPERWORK GONE OVER WITH PT. ALL QUESTIONS ANSWERED. THE IMPORTANCE OF PRONGING WAS GONE OVER WITH PT. WELL TAKING ALL OF HER MEDICATIONS APPROPRIATELY. IV WAS REMOVED. CATHETER TIP INTACT. PT TOLERATED WELL. PT SAFELY WHEELED OUT BY THE AID [facility].
== END 2021-03-15 18:15 | disposition home or self-care (01) | DRG 177 ==
LOC: ER 21:36 → MEDSURG 22:28
PROVIDERS: Admitting Provider Hospitalist; Emergency Provider Emergency Medicine; PCP Nurse Practitioner Family; Visit Provider Internal Medicine
DX: U07.1 COVID-19 (principal); J12.82 Pneumonia due to coronavirus disease 2019; J96.91 Respiratory failure, unspecified with hypoxia; J18.9 Pneumonia, unspecified organism; K80.80 Other cholelithiasis without obstruction; R16.1 Splenomegaly, not elsewhere classified; R59.0 Localized enlarged lymph nodes; G89.29 Other chronic pain; Z79.891 Long term (current) use of opiate analgesic; Z79.82 Long term (current) use of aspirin
CPT/HCPCS: 36415; 36600; 71045; 71275; 80053; 82728; 82803; 83605; 83735; 83880; 84145; 85025; 85378; 86140; 87040; 87426; 87635; 93005; 94640; 94664; 94762; 96365; 96367; 96372; 96375; 99285; J0456; J0696; J1100; J1650; J7050; Q9967

== ENCOUNTER → 2021-04-06 07:58 | Outpatient (BNVA) | payer MEDICARE, SELFPAY | PROVIDERS: PCP Nurse Practitioner Family; Visit Provider Anesthesiology | DX: G89.29 Other chronic pain (principal); M51.16 Intervertebral disc disorders with radiculopathy, lumbar region; F17.290 Nicotine dependence, other tobacco product, uncomplicated; Z79.891 Long term (current) use of opiate analgesic | CPT/HCPCS: 99213 ==

== ENCOUNTER → 2022-11-14 08:52 | Outpatient (BNVA) | payer OTHER, SELFPAY | PROVIDERS: PCP Nurse Practitioner Family; Visit Provider Podiatrist Foot & Ankle Surgery | DX: M76.822 Posterior tibial tendinitis, left leg; M84.375A Stress fracture, left foot, initial encounter for fracture; Z46.89 Encounter for fitting and adjustment of other specified devices | CPT/HCPCS: 73630; 99203; L4361 ==

== ENCOUNTER 2022-11-14 11:35 | Outpatient (CLI) | payer MEDICARE, SELFPAY | END 2022-11-14 11:36 | disposition home or self-care (01) | LOC: SPT 11:36 | PROVIDERS: PCP Nurse Practitioner Family; Visit Provider Podiatrist Foot & Ankle Surgery | DX: Z46.89 Encounter for fitting and adjustment of other specified devices (principal); M84.375A Stress fracture, left foot, initial encounter for fracture | CPT/HCPCS: 99203; L4361 ==

== ENCOUNTER → 2022-11-28 09:36 | Outpatient (BNVA) | payer OTHER, SELFPAY | PROVIDERS: PCP Nurse Practitioner Family; Visit Provider Podiatrist Foot & Ankle Surgery | DX: M76.822 Posterior tibial tendinitis, left leg; M84.375A Stress fracture, left foot, initial encounter for fracture | CPT/HCPCS: 99213 ==

== ENCOUNTER → 2023-01-01 13:21 | Outpatient (BNVA) | payer MEDICARE, SELFPAY | PROVIDERS: PCP Nurse Practitioner Family; Visit Provider Podiatrist Foot & Ankle Surgery | DX: M76.822 Posterior tibial tendinitis, left leg; M84.375A Stress fracture, left foot, initial encounter for fracture | CPT/HCPCS: 99213 ==